=== PATIENT | male | born 1970 | race Caucasian/White ===

== ENCOUNTER 2025-02-28 16:24 | Emergency (ER) | payer OTHER, SELFPAY ==
[2025-02-28 16:43] VITALS: BP 139/91; PULSE 68; RESP 18; TEMP 36.8; O2SAT 97
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
--- NOTE | 2025-02-28 17:10 | ED_ITS ---
HPI - Eye Problem General Chief complaint: Eye Problems Stated complaint: left eye Time Seen by Provider: 02/28/25 17:04 Source: patient and RN notes reviewed Mode of arrival: ambulatory Limitations: no limitations History of Present Illness HPI Narrative: 54-year-old male patient presents today complaining of redness to the left eye that occurred suddenly last night after he rubbed it. Denies pain or vision stevie nges. Denies any known injury. No straining. Related Data Home Medications ?Medication ?Instructions ?Recorded ?Confirmed ?Last Taken ?Type No Home Medications 02/28/25 02/28/25 U nknown History Allergies Allergy/AdvReac Type Severity Reaction Status Date / Time No Known Allergies Allergy Verified 02/28/25 16:26 PMFSH Comments At time of signature, I have reviewed and agree with nursing past medical, surgical, social and family history unless otherwise noted. Please see nursing chart for further information. There is no relevant family history pertinent to the presenting complaint Exam Narrative: GENERAL: Well-appearing, well-nourished, and in no acute distress. HEAD: Normocephalic, atraumatic. EYES: EOMI. No redness or drainage. Moderate subconjunctival hemorrhage to the lateral half of the left eye. Right eye normal ENT: Mucous membranes pink and moist. NECK: Normal AROM. CHEST: No respiratory distress. EXTREMITIES: Normal range of motion. No edema. SKIN: Warm, dry, no rash. Capillary refill normal. Normal skin turgor. NEURO: No focal deficits. Alert and oriented x3. Gait steady. PSYCH: Normal affect. No signs of depression or anxiety. Course Course Level of Care: Express Care Visit Vital Signs Vital signs: Vital Signs Temperature 98.2 F 02/28/25 16:43 Pulse Rate 68 02/28/25 16:43 Respiratory Rate 18 02/28/25 16:43 Blood Pressure 139/91 H 02/28/25 16:43 Pulse Oximetry 97 02/28/25 16:43 Oxygen Delivery Room Air 02/28/25 16:43 Temperature 98.2 F 02/28/25 16:43 Pulse Rate 68 02/28/25 16:43 Respiratory Rate 18 02/28/25 16:43 Blood Pressure 139/91 H 02/28/25 16:43 Pulse Oximetry 97 02/28/25 16:43 Oxygen Delivery Room Air 02/28/25 16:43 Reviewed MDM - Eye Problem MDM Narrative Medical decision making narrative: 54-year-old male patient presents today with redness to the left eye after he rubbed it last night. Denies injury, pain, vision changes. Upon exam, patient has a moderate subconjunctival hemorrhage to the lateral half of the left eye. No intervention appropriate. Vital signs stable. Differential Diagnosis Differential diagnosis: Likely corneal abrasion, conjunctivitis and subconjunctival hemorrhage Critical Care Time Critical Care Time Critical Care Time: No Discharge Plan Discharge Clinical Impression: Subconjunctival hemorrhage Qualifiers: Laterality: left Qualified Code(s): H11.32 - Conjunctival hemorrhage, left eye Patient Disposition: Home Condition: Stable Additional Instructions: The redness in your eye is due to a burst blood vessel on the surface. It will resolve with time without any intervention. Patient Language: Welsh Prescriptions: No Action No Home Medications Follow-up/Referrals: Harms,Tommy Mcmahon M.D. [Primary Care Provider] Time of Disposition: 17:09
== END 2025-02-28 17:15 | disposition home or self-care (01) ==
PROVIDERS: Emergency Provider Nurse Practitioner; PCP Family Medicine
DX: H11.32 Conjunctival hemorrhage, left eye (principal)
CPT/HCPCS: 99202; G0463